=== PATIENT | male | born 1970 | race Caucasian/White ===

== ENCOUNTER 2019-06-29 14:12 | Emergency (ER) | payer OTHER, SELFPAY ==
[2019-06-29] VITALS (19 sets, daily range): BP systolic 133–167; BP diastolic 76–94; PULSE 59–77; RESP 12–23; TEMP 36.7–36.9; O2SAT 95–99
--- NOTE | 2019-06-29 14:19 | DI.CT.S_ITS ---
PROCEDURE: CT STROKE INDICATIONS: CODE STROKE TECHNIQUE: Noncontrast 4.5 mm thick angled axial sections acquired from the foramen magnum to the vertex, with coronal reformats. For radiation dose reduction, the following was used: automated exposure control, adjustment of mA and/or kV according to patient size. COMPARISON: None. FINDINGS: Image quality: Excellent. CSF spaces: Basal cisterns are patent. No extra-axial fluid collections. Ventricles are normal in size and shape. Brain: No midline shift. No intracranial masses or hemorrhage. Salvador-white matter interface is normal. Skull and face: Calvarium and visualized facial bones are intact, without suspicious lesions. Sinuses: Visualized sinuses and mastoids are clear. IMPRESSION: No mass or hemorrhage, no trauma found. This information was immediately conveyed personally to the emergency room physician caring for the patient at 2:30 p.m. This study fulfills neurological imaging criteria for inclusion or exclusion of acute stroke therapies based on available published neurological imaging guidelines. Dictated by: Reji Bhatti M.D. on 06/29/2019 at 14:38 Approved by: Reji Bhatti M.D. on 06/29/2019 at 14:38
--- NOTE | 2019-06-29 14:19 | DI.RAD.S_ITS ---
PROCEDURE: XR CHEST 1V INDICATIONS: Possible stroke TECHNIQUE: One view of the chest was acquired. COMPARISON: None. FINDINGS: Surgical changes and devices: None. Lungs and pleura: Lungs are clear. No pleural effusions or pneumothorax. Mediastinum: Mediastinal contours appear normal. Heart size is normal. Bones and chest wall: No suspicious bony lesions. Overlying soft tissues appear unremarkable. IMPRESSION: No aspiration or pneumonia seen. Dictated by: Reji Bhatti M.D. on 06/29/2019 at 14:46 Approved by: Reji Bhatti M.D. on 06/29/2019 at 14:46
--- NOTE | 2019-06-29 14:25 | ED_ITS ---
HPI - Neuro Symptoms/Deficit General Chief Complaint: Neuro Symptoms/Deficit Stated Complaint: left side body tingling, cough, right eye blurry Time Seen by Provider: 06/29/19 14:12 Source: patient and family Mode of arrival: Ambulatory Limitations: no limitations History of Present Illness HPI Narrative: 49-year-old male nonsmoker with noncontributory medical history presents with his in the chief complaint of a sudden onset of neurologic symptoms including right eye blurring as well as left arm tingling and heaviness as well as left leg tingling and heaviness that started 1 hour prior to arrival. He states that he had a bit of a coughing fit and then felt some pain in the right side of his neck followed by the above-stated symptoms. He denies any injury. He takes no blood thinners and has no history of hypertension, stroke, or irregular heart rate. His symptoms persist and have shown no signs of improvement. Per patient time of onset is about 1:25 p.m, , however, states he came to see her at her work about these symptoms at about 1pm. Additionally, patient was walking with a bit of a list to the left. Patient activated as Code Stroke and taken directly to CT. LAMS score 3. Current TPA candidate, not currently IR candidate. Onset (ago): minute(s) Location: left arm and left leg History of same: No Severity: moderate Quality: weak, numb and tingling Relieving factors: none Exacerbating factors: none Context: sudden onset On Anticoagulants: No Treatments Prior to Arrival: none Related Data Home Medications Medication Instructions Recorded Confirmed No Known Home Medications 06/29/19 06/29/19 Allergies Allergy/AdvReac Type Severity Reaction Status Date / Time No Known Drug Allergies Allergy Verified 06/29/19 14:50 Review of Systems Constitutional Constitutional: Denies chills, Denies fatigue, Denies fever(s), Denies frequent falls, Denies lethargy and Denies weakness Eyes Eyes: Denies change in vision, Denies eye discharge, Denies irritation and Reports loss of vision ENT Ears, Nose, Mouth, and Throat: Denies change in voice, Denies dizziness, Denies neck pain, Denies sore throat and Denies throat swelling Cardiovascular Cardiovascular: Denies chest pain, Denies irregular heart rhythm, Denies lightheadedness, Denies palpitations, Denies dyspnea, Denies dyspnea on exertion and Denies orthopnea Respiratory Respiratory: Denies cough, Denies dyspnea, Denies dyspnea on exertion and Denies wheezing Gastrointestinal Gastrointestinal: Denies abdominal pain, Denies change in bowel habits, Denies diarrhea, Denies nausea and Denies vomiting Genitourinary Genitourinary: Denies hematuria, Denies flank pain, Denies urinary incontinence and Denies urinary urgency Musculoskeletal Musculoskeletal: Reports abnormal gait, Denies back pain, Denies muscle weakness, Denies neck pain, Denies numbness and Denies tingling Integumentary/Breasts Skin/Breast: Denies pruritus, Denies erythema, Denies rash and Denies wounds Neurologic Neurologic: Reports abnormal gait, Denies behavioral changes, Denies confusion, Denies dizziness, Denies frequent falls, Reports lack of coordination, Reports focal weakness, Reports loss of vision, Denies numbness, Reports sensory deficit, Denies tingling, Reports paresthesias and Denies weakness Psychiatric Psychiatric: Denies anxiety, Denies behavioral changes, Denies confusion, Denies depression, Denies homicidal ideation and Denies suicidal ideation Endocrine Endocrine: Denies fatigue, Denies flushing and Denies palpitations Hematologic/Lymphatic Hematologic/Lymphatic: Denies easy bruising Allergic/Immunologic Allergic/Immunologic: Denies urticaria, Denies throat swelling and Denies wheezing Patient History Surgical History (Updated 06/29/19 @ 14:50 by Trisha Mendoza RN) No pertinent past surgical history (Acute) Social History Smoking Status: Never smoker Substance Use Type: does not use Exam Narrative Exam Narrative: GENERAL: [49] year old patient appears stated age. Well- nourished, well-developed patient, in mild distress. HEAD: Atraumatic. Normocephalic. EYES: Pupils equal round and reactive. Extraocular motions intact. No scleral icterus. No injection or drainage. ENT: Nose without bleeding, purulent drainage. Throat without erythema, tonsil lar hypertrophy or exudate. Airway patent. NECK: Trachea midline. Non tender CARDIOVASCULAR: Regular rate and rhythm without murmurs, gallops, or rubs. RESPIRATORY: Clear to auscultation. Breath sounds equal bilaterally. No wheezes, rales, or rhonchi. GASTROINTESTINAL: Abdomen soft, non-tender, nondistended. EXTREMITIES: No edema or joint tenderness. BACK: Nontender without deformity or crepitance. No flank tenderness. NEURO: AOx3. SKIN: No rash or erythema of visible areas Initial Vital Signs Initial Vital Signs: Vital Signs Pulse Rate 65 06/29/19 14:28 Respiratory Rate 15 06/29/19 14:28 Blood Pressure 133/87 06/29/19 14:28 Pulse Oximetry 99 06/29/19 14:28 Scores NIH Stroke Scale Level of Conciousness: Alert, keenly responsive Ask month/age: Answers both questions correctly. Open/close eyes, close hand: Performs both tasks correctly Best gaze horizontal: Normal Visual roberts: No visual loss Facial palsy: Minor paralysis, flattened nasolabial fold, asymmetry on smiling Left arm drift: Drifts down, not to bed Right arm drift: No drift for full 10 sec Left leg drift: No drift for full 10 sec Right leg drift: No drift for full 10 sec Limb ataxia: Absent Sensory on face/arms/legs: Mild to moderate sensory loss, can tell touch Best language: No aphasia, normal Dysarthria: Normal Extinction or inattention: No abnormality Total NIH Stroke scale score: 3 Course Course Course Narrative: tPA (Tissue Plasminogen Activator) Dosing for Stroke Calculator from [employer] on 06/29/2019 All calculations should be rechecked by clinician prior to use RESULT SUMMARY: 8.4 mg Bolus dose, given IV over 1 min 75.5 mg Infusion, given IV over 60 mins 16.1 mg Waste, to be discarded INPUTS: Weight ?> 93.2 kg 1510 REPEAT NIHSS NIH Stroke Scale/Score (NIHSS) from [email or web address] on 06/29/2019 All calculations should be rechecked by clinician prior to use RESULT SUMMARY: 3 points NIH Stroke Scale INPUTS: 1A: Level of consciousness ?> 0 = Alert; keenly responsive 1B: Ask month and age ?> 0 = Both questions right 1C: 'Blink eyes' & 'squeeze hands' ?> 0 = Performs both tasks 2: Horizontal extraocular movements ?> 0 = Normal 3: Visual roberts ?> 0 = No visual loss 4: Facial palsy ?> 1 = Minor paralysis (flat nasolabial fold, smile asymmetry) 5A: Left arm motor drift ?> 1 = Drift, but doesn't hit bed 5B: Right arm motor drift ?> 0 = No drift for 10 seconds 6A: Left leg motor drift ?> 0 = No drift for 5 seconds 6B: Right leg motor drift ?> 0 = No drift for 5 seconds 7: Limb Ataxia ?> 0 = No ataxia 8: Sensation ?> 1 = Mild-moderate loss: less sharp/more dull 9: Language/aphasia ?> 0 = Normal; no aphasia 10: Dysarthria ?> 0 = Normal 11: Extinction/inattention ?> 0 = No abnormality Orders Ordered: Discontinued Medications Alteplase, Recombinant (Activase) 75.5 mg 0.81 mg/kg (75.5 mg) IV NOW ONE Stop: 06/29/19 18:51 Alteplase, Recombinant (Activase) 8.4 mg 0.09 mg/kg (8.4 mg) IV NOW ONE Stop: 06/29/19 18:52 Reevaluation(s) Reevaluation #1: dry head shows no bleed. call to [facility] Stroke. On arrival to room patient reports worsening weakness of LUE and now can barely lift it off the cart. Otherwise well. Reevaluation #2: during CTA patient LUE completely weak, cannot lift off cart. By the time he returns to room he can lift it again, but still weak and tingling. Time: 15:03 Reevaluation #3: TPA bolus at 1540 drip at 1541 patient has near complete resolution of symptoms now. No CONNELLY or bleeding gums, e tc. Time: 15:53 Additional Reevaluation(s): 1743 - called to see patient, acting different, confused. Can no longer use L arm. Stat Head CT ordered Consultations Consultation #1: I've spoken with stroke team at [facility] and now Neuro Store Sales Manager regarding patient. Happy to accept, they will notify us of a bed. Time: 16:16 Consultation #2: both the stroke team and neurointensivist notified of patient clinical change, repeat head CT and decision to use airlift to get patient to [facility] more quickly. Vital Signs Vital signs: Vital Signs - 8 hr 06/29/19 14:28 06/29/19 14:33 06/29/19 14:55 Temperature Pulse Rate 65 62 Pulse Rate [Right] 61 Respiratory Rate 15 16 17 Blood Pressure [Right Arm] 133/87 139/85 149/83 H Pulse Oximetry 99 99 99 06/29/19 15:28 06/29/19 15:30 06/29/19 15:40 Temperature 98.0 F 98.0 F Pulse Rate 67 74 72 Pulse Rate [Right] Respiratory Rate 17 18 19 Blood Pressure [Right Arm] 153/93 H 147/93 H 144/94 H Pulse Oximetry 97 96 97 06/29/19 15:44 06/29/19 15:50 06/29/19 15:57 Temperature 98.5 F Pulse Rate 71 72 77 Pulse Rate [Right] Respiratory Rate 19 19 12 Blood Pressure [Right Arm] 146/92 H 146/89 H 148/91 H Pulse Oximetry 98 98 98 06/29/19 16:15 06/29/19 16:30 06/29/19 16:35 Temperature 98.5 F 98.5 F Pulse Rate 63 64 62 Pulse Rate [Right] Respiratory Rate 21 16 20 Blood Pressure [Right Arm] 141/90 H 141/80 H 146/87 H Pulse Oximetry 96 99 98 06/29/19 16:45 06/29/19 17:00 06/29/19 17:15 Temperature Pulse Rate 64 62 61 Pulse Rate [Right] Respiratory Rate 20 18 18 Blood Pressure [Right Arm] 140/83 167/92 H 135/83 Pulse Oximetry 98 97 98 MDM - Neuro Symptoms/Deficit Lab Data Result diagrams: 06/29/19 14:39 06/29/19 14:39 Labs: Lab Results 06/29/19 06/29/19 06/29/19 Range/Units 14:39 14:39 14:39 WBC 4.9 (4.5-11.0) X10^3/uL RBC 5.20 (4.5-5.9) X10^6/uL Hgb 15.3 (13.5-17.5) g/dL Hct 43.1 (41-53) % MCV 82.9 (80-100) fL MCH 29.5 (26-34) PG MCHC 35.6 (30-36) % RDW 12.5 (11.6-14.8) % Plt Count 210 (150-400) X10^3/uL Neut % (Auto) 60.0 (50-75) % Lymph % (Auto) 28.6 (25-40) % Randall % (Auto) 7.6 (3-14) % Eos % (Auto) 2.6 (2-4) % Baso % (Auto) 1.2 (0-2) % Neut # (Auto) 2900 (0795-7438) /uL Lymph # (Auto) 1400 (3269-1966) /uL Randall # (Auto) 400 (0-900) /uL Eos # (Auto) 100 (0-450) /uL Baso # (Auto) 100 (0-100) /uL PT 12.3 (10.1-12.7) SECONDS INR 1.1 (0.9-1.3) APTT 38 H (26.4-36.2) SECONDS Sodium 139 (137-145) mmol/L Potassium 4.0 (3.4-5.1) mmol/L Chloride 104 (98-107) mmol/L Carbon Dioxide 25 (22-32) mmol/L BUN 14 (9-20) mg/dL Creatinine 0.90 (0.66-1.25) mg/dL Estimated GFR > 60.0 (>60) mL/min BUN/Creatinine Ratio 15.6 (6-22) Glucose 102 H (70-100) mg/dL Calcium 9.1 (8.4-10.2) mg/dL Total Bilirubin 0.6 (0.2-1.3) mg/dL AST 34 (17-59) IU/L ALT 30 (<50) IU/L Alkaline Phosphatase 81 (38-126) U/L Total Creatine Kinase 71 (55-170) U/L CK-MB (CK-2) TNP CK-MB (CK-2) Rel Index TNP Troponin I < 0.012 (0.01-0.034) ng/mL Total Protein 7.3 (6.3-8.2) g/dL Albumin 4.4 (3.5-5.0) g/dL Globulin 2.9 (1.7-4.1) g/dL Albumin/Globulin Ratio 1.5 (1.0-2.8) U Opiates 300ng/mL cut (Negative) Ur Oxycodone Screen (Negative) Urine Methadone Screen (Negative) Ur Barbiturates Screen (Negative) U Tricyclic Antidepress (Negative) Ur Phencyclidine Scrn (Negative) Ur Amphetamines Screen (Negative) U Methamphetamines Scrn (Negative) Ur MDMA Scrn (Ecstasy) (Negative) U Benzodiazepines Scrn (Negative) Urine Cocaine Screen (Negative) U Marijuana (THC) Screen (Negative) 06/29/19 Range/Units 15:19 WBC (4.5-11.0) X10^3/uL RBC (4.5-5.9) X10^6/uL Hgb (13.5-17.5) g/dL Hct (41-53) % MCV (80-100) fL MCH (26-34) PG MCHC (30-36) % RDW (11.6-14.8) % Plt Count (150-400) X10^3/uL Neut % (Auto) (50-75) % Lymph % (Auto) (25-40) % Randall % (Auto) (3-14) % Eos % (Auto) (2-4) % Baso % (Auto) (0-2) % Neut # (Auto) (0180-5683) /uL Lymph # (Auto) (4327-6772) /uL Randall # (Auto) (0-900) /uL Eos # (Auto) (0-450) /uL Baso # (Auto) (0-100) /uL PT (10.1-12.7) SECONDS INR (0.9-1.3) APTT (26.4-36.2) SECONDS Sodium (137-145) mmol/L Potassium (3.4-5.1) mmol/L Chloride (98-107) mmol/L Carbon Dioxide (22-32) mmol/L BUN (9-20) mg/dL Creatinine (0.66-1.25) mg/dL Estimated GFR (>60) mL/min BUN/Creatinine Ratio (6-22) Glucose (70-100) mg/dL Calcium (8.4-10.2) mg/dL Total Bilirubin (0.2-1.3) mg/dL AST (17-59) IU/L ALT (<50) IU/L Alkaline Phosphatase (38-126) U/L Total Creatine Kinase (55-170) U/L CK-MB (CK-2) CK-MB (CK-2) Rel Index Troponin I (0.01-0.034) ng/mL Total Protein (6.3-8.2) g/dL Albumin (3.5-5.0) g/dL Globulin (1.7-4.1) g/dL Albumin/Globulin Ratio (1.0-2.8) U Opiates 300ng/mL cut Negative (Negative) Ur Oxycodone Screen Negative (Negative) Urine Methadone Screen Negative (Negative) Ur Barbiturates Screen Negative (Negative) U Tricyclic Antidepress Negative (Negative) Ur Phencyclidine Scrn Negative (Negative) Ur Amphetamines Screen Negative (Negative) U Methamphetamines Scrn Negative (Negative) Ur MDMA Scrn (Ecstasy) Negative (Negative) U Benzodiazepines Scrn Negative (Negative) Urine Cocaine Screen Negative (Negative) U Marijuana (THC) Screen Negative (Negative) Point of Care Testing Glucose POC 90 Urine Dip Bedside Urine Glucose Negative Bedside Urine Bilirubin - Negative Bedside Urine Ketone - Negative Urine Specific [place] 1.010 Bedside Urine Occult Blood - Negative Bedside Urine pH 7.0 Bedside Urine Protein - Negative Bedside Urine Urobilinogen - Negative Bedside Urine Nitrite - Negative Bedside Urine Leukocytes - Negative Esterase ECG Data Attestation: I personally reviewed and interpreted this ECG as follows: Prior ECG tracings: not available for review Interpretation: EKG is normal sinus rhythm rate [ 68] and free of any signs of ischemia or ectopy. No ST segmental elevation or depression. No T wave inversions MDM Narrative Medical decision making narrative: 49-year-old male previously healthy with sudden onset side neurologic symptoms associated with vigorous cough and right- sided neck pain. After consultation with Stroke Team we elect to hold on tPA until receipt of CT angiogram of head neck given the consideration of dissection. TPA administered, near complete resolution of symptoms. Patient to [facility] for ongoing care. Critical Care Time Critical Care Time Critical Care Time: Yes Total Critical Care Time: 35 Attestation: The high probability of a clinically significant, sudden or life threatening deterioration of the [NV] system(s) required my full and direct attention, intervention and personal management. The aggregate critical care time was [35] minutes. This time is in addition to time spent performing reported procedures but includes the following: [x] Data Review and interpretation [x] Patient assessment and monitoring of vital signs [x] Documentation [x] Medication orders and management Discharge Plan Departure Patient Disposition: [facility] Clinical Impression: Received intravenous tissue plasminogen activator (tPA) in emergency department Cerebrovascular accident Qualifiers: CVA mechanism: unspecified Qualified Code(s): I63.9 - Cerebral infarction, unspecified Discharge Date/Time: 06/29/19 19:03 Prescriptions: No Action No Known Home Medications RF: 0
--- NOTE | 2019-06-29 14:42 | DI.CT.S_ITS ---
PROCEDURE: CT ANGIO HEAD AND NECK INDICATIONS: worsening stroke symptoms TECHNIQUE: Pre-contrast 4.5 mm thick sections acquired from the foramen magnum to the vertex. After the administration of intravenous contrast, 1 mm thick sections acquired from the aortic arch through the [place] of [place]. Post-contrast 4.5 mm thick sections then re-acquired from the foramen magnum to the vertex. 3-dimensional vuicxdz-modigwwff-glgnexveqi (MIP) and/or volume rendering reformats were acquired of the central intracranial vasculature and neck separately. COMPARISON: None. FINDINGS: Image quality: Excellent. BRAIN: CSF spaces: Ventricles are normal in size and shape. Basal cisterns are patent. No extra-axial fluid collections. Brain: No midline shift. No intracranial bleeds or masses. Salvador-white matter interface appears intact. Skull and face: Calvarium and facial bones appear intact, without suspicious lesions. Orbits appear normal. Sinuses: Sinuses and mastoids are clear. HEAD CT ANGIOGRAPHY: Anterior circulation: Intracranial internal carotid arteries are patent. No large vessel occlusion seen. The flow within the paired anterior cerebral arteries is normal and symmetric. The flow within the middle cerebral arteries is normal and symmetric. The anterior communicating artery is seen. No aneurysms are seen. 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 Flow within the posterior cerebral arteries is normal and symmetric. No aneurysms are seen. The posterior communicating arteries are hypoplastic or absent. NECK CT ANGIOGRAPHY: Carotid system: The great vessels demonstrate a conventional anatomy as they arise from the aortic arch. The origins of the common carotid arteries appear patent. The common carotid arteries demonstrate normal caliber and courses. The most proximal right ICA is patent. However, just distal to the origins of the right ICA is occluded or to the level of the distal intracranial ICA. The left ICA is patent. The external carotid arteries are patent. Posterior circulation: The origins of the vertebral arteries both appear widely patent. The left vertebral artery is hypoplastic compared to the right. The more superior extracranial portions of both vertebral arteries also demonstrate normal courses. Normal appearing basilar artery. Soft tissues: Visualized neck soft tissues demonstrate no suspicious abnormalities. Bones: No suspicious bony lesions. Visualized cervical spine appears normally aligned. IMPRESSION: 1. 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 2. No intracranial large vessel thrombus identified. 3. 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 4. No significant stenosis or aneurysm identified. Any quantitative measurements of stenosis were performed using NASCET criteria. Comment: Findings were discussed with Memo Guerra at 3:22 PM. Dictated by: Mata Muñoz M.D. on 06/29/2019 at 15:16 Approved by: Mata Muñoz M.D. on 06/29/2019 at 15:32
[2019-06-29 14:52] LABS: Add Manual Diff / Slide Review NO; Basophils Absolute Auto 100 /uL (0-100); Basophils Percent Auto 1.2 % (0-2); Eosinophils Absolute Auto 100 /uL (0-450); Eosinophils Percent Auto 2.6 % (2-4); Hematocrit 43.1 % (41-53); Hemoglobin 15.3 g/dL (13.5-17.5); Lymphocytes Absolute Auto 1400 /uL (1100-4500); Lymphocytes Percent Auto 28.6 % (25-40); Mean Corpuscular HGB Conc 35.6 % (30-36); Mean Corpuscular Hemoglobin 29.5 PG (26-34); Mean Corpuscular Volume 82.9 fL (80-100); Monocytes Absolute Auto 400 /uL (0-900); Monocytes Percent Auto 7.6 % (3-14); Neutrophils Absolute Auto 2900 /uL (1500-7000); Platelet Count 210 X10^3/uL (150-400); Red Cell Distribution Width 12.5 % (11.6-14.8); White Blood Cell Count 4.9 X10^3/uL (4.5-11.0)
[2019-06-29 14:57] LABS: INR 1.1 (0.9-1.3); Prothrombin Time 12.3 SECONDS (10.1-12.7)
[2019-06-29 15:00] LABS: PTT Partial Thromboplastin Tim 38 SECONDS (26.4-36.2)
[2019-06-29 15:06] LABS: Alanine Aminotransferase 30 IU/L (<50); Albumin 4.4 g/dL (3.5-5.0); Albumin Globulin Ratio 1.5 (1.0-2.8); Alkaline Phosphatase 81 U/L (38-126); Aspartate Aminotransferase 34 IU/L (17-59); BUN Creatinine Ratio 15.6 (6-22); Bilirubin Total 0.6 mg/dL (0.2-1.3); Blood Urea Nitrogen 14 mg/dL (9-20); Calcium 9.1 mg/dL (8.4-10.2); Carbon Dioxide 25 mmol/L (22-32); Chloride 104 mmol/L (98-107); Creatine Kinase 71 U/L (55-170); Estimated Glomerular Filt Rate > 60.0 mL/min (>60); Globulin 2.9 g/dL (1.7-4.1); Glucose 102 mg/dL (70-100); HEMOLYSIS 39 (0-50); Sodium 139 mmol/L (137-145); Total Protein 7.3 g/dL (6.3-8.2)
[2019-06-29 15:17] LABS: Troponin I < 0.012 ng/mL (0.01-0.034)
[2019-06-29 15:38] LABS: UR Morphine/Opiate cutoff 300 Negative (Negative); Ur Creatinine Normal (Normal); Ur Specific Gravity Normal (Normal); Urine Amphetamines Negative (Negative); Urine Barbiturates Negative (Negative); Urine Benzodiazepines Negative (Negative); Urine Cocaine Negative (Negative); Urine MDMA Negative (Negative); Urine Methadone Negative (Negative); Urine Methamphetamines Negative (Negative); Urine Oxycodone Negative (Negative); Urine Phencyclidine Negative (Negative); Urine Tetrahydrocannabinol Negative (Negative); Urine Tricyclic Antidepressant Negative (Negative); Urine pH Normal (Normal)
--- NOTE | 2019-06-29 16:01 | PC.NURSE ---
pt arrived to ER with complaints of a fuzzy. blurry right eye, tingling in left leg and arm, left facial droop.
--- NOTE | 2019-06-29 16:51 | PC.NURSE ---
tpa bolus started at 1540- mixed by pharmacy. tpa gtt started at 1541 at 75.5 ml/hr (total volume 75.5 cc)and infused completely at 1641 hung tpa flush at 1641, normal saline at 75.5 ml hour, total amount is 50 cc. pt has a minor left sided facial droop
--- NOTE | 2019-06-29 17:43 | DI.CT.S_ITS ---
PROCEDURE: CT HEAD/BRAIN WO CON INDICATIONS: mental status change after TPA TECHNIQUE: Noncontrast 4.5 mm thick angled axial sections acquired from the foramen magnum to the vertex, with coronal and sagittal reformats. For radiation dose reduction, the following was used: automated exposure control, adjustment of mA and/or kV according to patient size. COMPARISON: [facility], CT, CT ANGIO HEAD AND NECK, 06/29/2019, 14:42. [facility], CT, CT STROKE, 06/29/2019, 14:18. FINDINGS: Image quality: Diagnostic. Patient motion artifact. CSF spaces: Basal cisterns are patent. No extra-axial fluid collections. Ventricles are normal in size and shape. Brain: No midline shift. No intracranial masses or hemorrhage. Salvador-white matter interface is normal. Skull and face: Calvarium and visualized facial bones are intact, without suspicious lesions. Sinuses: Visualized sinuses and mastoids are clear. IMPRESSION: Patient motion artifact. No acute stroke, hemorrhage, or mass is noted after TPA administration. Dictated by: Olvin Nation M.D. on 06/29/2019 at 18:18 Approved by: Olvin Nation M.D. on 06/29/2019 at 18:21
--- NOTE | 2019-06-29 18:21 | PC.NURSE ---
Pt has been on 1:1 care for code stroke, at 1743, pt's condition changed. he became confused to hospital name. rolling all over bed. unable to push himself up in bed or follow commands. pt was hiccuping at this time. left arm became flaccid. left facial droop got worse. pt had an increase in sensation to his left arm, tingling. Dr. Guerra called in the room immediately. we went to CT Scan. at bedside. pt is now starting to move his left arm, facial droop. nihss scale 5
--- NOTE | 2019-06-29 19:06 | PC.NURSE ---
Valente the pharmacist mixed up TPA and bolus. He will enter in med record.
== END 2019-06-29 19:03 | disposition short-term general hospital (02) ==
PROVIDERS: Emergency Provider Emergency Medicine
DX: I63.9 Cerebral infarction, unspecified (principal); Z92.82 Status post administration of tPA (rtPA) in a different facility within the last 24 hours prior to admission to current facility; R20.2 Paresthesia of skin; H53.8 Other visual disturbances
CPT/HCPCS: 36415; 70450; 70496; 70498; 71045; 80053; 80305; 81003; 82550; 82962; 84484; 85025; 85610; 85730; 93005; 99285; 99291; 99292

== ENCOUNTER 2019-11-10 14:23 | Emergency (ER) | payer OTHER, SELFPAY ==
[2019-11-10 14:36] VITALS: BP 163/85; PULSE 85; RESP 17; TEMP 36.9; O2SAT 98; BMI 30.7
--- NOTE | 2019-11-10 15:02 | DI.CT.S_ITS ---
PROCEDURE: CT HEAD/BRAIN WO CON INDICATIONS: left leg numb prior CVA TECHNIQUE: Noncontrast 4.5 mm thick angled axial sections acquired from the foramen magnum to the vertex, with coronal and sagittal reformats. For radiation dose reduction, the following was used: automated exposure control, adjustment of mA and/or kV according to patient size. COMPARISON: [facility], CT, CT STROKE, 06/29/2019, 14:18. [facility], CT, CT HEAD/BRAIN WO CON, 06/29/2019, 17:42. FINDINGS: Image quality: Excellent. CSF spaces: Basal cisterns are patent. No extra-axial fluid collections. Ventricles are normal in size and shape. Brain: No midline shift. No intracranial masses or hemorrhage. Salvador-white matter interface is normal. Skull and face: Calvarium and visualized facial bones are intact, without suspicious lesions. Sinuses: Visualized sinuses and mastoids are clear. IMPRESSION: 1. No acute intracranial abnormalities. Dictated by: Cliff Siddiqi M.D. on 11/10/2019 at 15:16 Approved by: Cliff Siddiqi M.D. on 11/10/2019 at 15:19
--- NOTE | 2019-11-10 15:07 | ED.EXTPRO ---
HPI - Extremity Problem General Chief complaint: Extremity Problem,Nontraumatic Stated complaint: numbness in leg, left Time Seen by Provider: 11/10/19 14:38 Source: patient Mode of arrival: Ambulatory Limitations: no limitations History of Present Illness HPI Narrative: Patient is a 49-year-old male with history of recent stroke in June 2019 with tPA presenting with left thigh numbness. He actually had left body numbness of with his stroke. He says today this does not quite feel like the numbness he had with his stroke he was sitting on a chair when he got up he felt like his left leg was numb a resolved as he was moving around but not completely he says it still feels weird mostly on his left lateral anterior thigh. He has no weakness he is ambulatory without any problem. He denies any other symptoms. He has had previously with his stroke he had some visual changes as well which he does not have. He has no slurring of speech or facial drooping. His symptoms started around 8:00 a.m. and he arrived in the emergency department at 2:30 p.m. Onset (ago): hour(s) Related Data Home Medications Medication Instructions Recorded Confirmed aspirin [Adult Low Dose Aspirin] 81 mg PO DAILY 11/10/19 11/10/19 atorvastatin 80 mg PO DAILY 11/10/19 11/10/19 Allergies Allergy/AdvReac Type Severity Reaction Status Date / Time No Known Drug Allergies Allergy Verified 11/10/19 14:42 Review of Systems Review of Systems Narrative: GENERAL: Denies chills, fatigue, malaise, fever, sweats, travel HEENT: Denies sinus pain, ear pain, sore throat, difficulty swallowing, neck pain RESPIRATORY: Denies dyspnea, cough, wheezing, hemoptysis, sputum. CARDIOVASCULAR: Denies chest pain, palpitations, orthopnea, edema GASTROINTESTINAL: Denies nausea, vomiting, abdominal pain, diarrhea, constipation, melena. : Denies dysuria, frequency, incontinence, hematuria, urinary retention, flank pain. MUSCULOSKELETAL: Denies weakness, joint pain, or bony pain SKIN: No rash, no erythema, no pruritus NEUROLOGIC: See HPI PSYCHIATRIC: No concerning psychosocial issues. 12 point review of systems is negative except for those stated above and HPI Patient History Medical History CVA (cerebral vascular accident) (Acute) Surgical History No pertinent past surgical history (Acute) Social History Smoking Status: Never smoker Smoking Status: Never smoker alcohol intake frequency: a few times a week Substance Use Type: does not use Exam Initial Vital Signs Initial Vital Signs: Vital Signs Temperature 98.4 F 11/10/19 14:36 Pulse Rate 85 11/10/19 14:36 Respiratory Rate 17 11/10/19 14:36 Blood Pressure 163/85 H 11/10/19 14:36 Pulse Oximetry 98 11/10/19 14:36 GENERAL: Well-appearing, well-nourished and in no acute distress. HEENT: Head atraumatic,EOMI, pupils reactive, face symmetric, moist mucous membranes CARDIOVASCULAR: Regular rate and rhythm without murmurs, rubs or gallops. RESPIRATORY: Breath sounds equal bilaterally, no wheezes rales or rhonchi. ABDOMEN: Soft, nontender. Normoactive bowel sounds all 4 quadrants. No guarding or rebound. EXTREMITIES: Normal range of motion, no clubbing or edema. Neurovascularly intact NEUROLOGICAL: Alert and oriented x4.Normal gait and speech. Cranial nerves II through XII grossly intact. Good [id number], good guus-va-ppen, strength equal bilaterally, no dysarthria or aphasia, sensation in tact to soft touch bilaterally, no visual changes, no facial droop. Sensation left anterior thigh he says does feel different BACK: No vertebral tenderness or step-offs no lumbar pain SKIN: Warm, dry, no laceration, no petechiae, no rashes or lesions. Scores NIH Stroke Scale Level of Conciousness: Alert, keenly responsive Ask month/age: Answers both questions correctly. Open/close eyes, close hand: Performs both tasks correctly Best gaze horizontal: Normal Visual roberts: No visual loss Facial palsy: Normal symetrical movement Left arm drift: No drift for full 10 sec Right arm drift: No drift for full 10 sec Left leg drift: No drift for full 10 sec Right leg drift: No drift for full 10 sec Limb ataxia: Absent Sensory on face/arms/legs: Normal, no sensory loss Best language: No aphasia, normal Dysarthria: Normal Extinction or inattention: No abnormality Total NIH Stroke scale score: 0 Course Orders Ordered: ED Orders 11/10/19 15:00 Complete Blood Count AUTO DIFF Stat Comprehensive Metabolic Panel Stat Partial Thromboplastin Time Stat Prothrombin Time INR Stat Troponin & CK Cardiac Panel Stat 11/10/19 15:02 CT head/brain wo con Stat EKG-12 Lead Stat Vital Signs Vital signs: Vital Signs - 8 hr 11/10/19 14:36 11/10/19 16:53 11/10/19 16:55 Temperature 98.4 F Pulse Rate 85 77 Respiratory Rate 17 21 Blood Pressure 163/85 H 160/84 H 160/84 H Pulse Oximetry 98 97 11/10/19 17:05 Temperature Pulse Rate 79 Respiratory Rate 20 Blood Pressure 132/80 Pulse Oximetry 97 MDM - Extremity (Nontraumatic) Lab Data Result diagrams: 11/10/19 15:00 11/10/19 15:00 Labs: Lab Results 11/10/19 11/10/19 11/10/19 Range/Units 15:00 15:00 15:00 WBC 6.1 (4.5-11.0) X10^3/uL RBC 5.21 (4.5-5.9) X10^6/uL Hgb 15.5 (13.5-17.5) g/dL Hct 43.9 (41-53) % MCV 84.3 (80-100) fL MCH 29.7 (26-34) PG MCHC 35.2 (30-36) % RDW 12.2 (11.6-14.8) % Plt Count 205 (150-400) X10^3/uL Neut % (Auto) 77.8 H (50-75) % Lymph % (Auto) 15.2 L (25-40) % [place] % (Auto) 5.7 (3-14) % Eos % (Auto) 0.5 L (2-4) % Baso % (Auto) 0.8 (0-2) % Neut # (Auto) 4700 (8050-4076) /uL Lymph # (Auto) 900 L (8188-0774) /uL [place] # (Auto) 300 (0-900) /uL Eos # (Auto) 0 (0-450) /uL Baso # (Auto) 0 (0-100) /uL PT 12.1 (10.1-12.7) SECONDS INR 1.0 (0.9-1.3) APTT 37 H (26.4-36.2) SECONDS Sodium 139 (137-145) mmol/L Potassium 3.9 (3.4-5.1) mmol/L Chloride 104 (98-107) mmol/L Carbon Dioxide 26 (22-32) mmol/L BUN 11 (9-20) mg/dL Creatinine 0.89 (0.66-1.25) mg/dL Estimated GFR > 60.0 (>60) mL/min BUN/Creatinine Ratio 12.4 (6-22) Glucose 104 H (70-100) mg/dL Calcium 9.2 (8.4-10.2) mg/dL Total Bilirubin 0.7 (0.2-1.3) mg/dL AST 72 H (17-59) IU/L ALT 165 H (<50) IU/L Alkaline Phosphatase 162 H (38-126) U/L Total Creatine Kinase 68 (55-170) U/L CK-MB (CK-2) TNP CK-MB (CK-2) Rel Index TNP Troponin I < 0.012 (0.01-0.034) ng/mL Total Protein 7.2 (6.3-8.2) g/dL Albumin 4.4 (3.5-5.0) g/dL Globulin 2.8 (1.7-4.1) g/dL Albumin/Globulin Ratio 1.6 (1.0-2.8) Urine Dip Bedside Urine Glucose Negative Bedside Urine Bilirubin - Negative Bedside Urine Ketone - Negative Urine Specific [place] 1.015 Bedside Urine Occult Blood - Negative Bedside Urine pH 7.0 Bedside Urine Protein - Negative Bedside Urine Urobilinogen - Negative Bedside Urine Nitrite - Negative Bedside Urine Leukocytes - Negative Esterase Imaging Data CT scan - head: Radiologist's Impression: PROCEDURE: CT HEAD/BRAIN WO CON INDICATIONS: left leg numb prior CVA TECHNIQUE: Noncontrast 4.5 mm thick angled axial sections acquired from the foramen magnum to the vertex, with coronal and sagittal reformats. For radiation dose reduction, the following was used: automated exposure control, adjustment of mA and/or kV according to patient size. COMPARISON: [facility], CT, CT STROKE, 06/29/2019, 14:18. [facility], CT, CT HEAD/BRAIN WO CON, 06/29/2019, 17:42. FINDINGS: Image quality: Excellent. CSF spaces: Basal cisterns are patent. No extra-axial fluid collections. Ventricles are normal in size and shape. Brain: No midline shift. No intracranial masses or hemorrhage. [place]-white matter interface is normal. Skull and face: Calvarium and visualized facial bones are intact, without suspicious lesions. Sinuses: Visualized sinuses and mastoids are clear. IMPRESSION: 1. No acute intracranial abnormalities. Dictated by: Cliff Siddiqi M.D. on 11/10/2019 at 15:16 MDM Narrative Medical decision making narrative: Patient is having some back pain he has only numbness in 1 area of his thigh. 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 He has no weakness. There is only a small area of numbness on his thigh with mild back pain. no other focal deficits an NIH stroke scale of 0. Long discussion with patient and family decision to go home, in to return to the ED. we also discussed monitoring his blood pressure at home daily. Discharge Plan Departure Patient Disposition: Home Clinical Impression: Acute back pain with sciatica Qualifiers: Laterality: left Qualified Code(s): M54.42 - Lumbago with sciatica, left side Discharge Date/Time: 11/10/19 17:07 Instructions: DI for Back Pain With Sciatica Activity Restrictions/Additional Instructions: *You have been diagnosed with back pain with sciatica *What to do: Is it is possible this is back pain with sciatica. At this time it is unlikely to be stroke or stroke-like related. Please monitor your blood pressure daily once a day same time every day *Continue to take medications as directed *Follow up with your primary care provider in 2-3 days *Return to ER if you should have increasing weakness increasing numbness or any new, worsening or concerning symptoms Prescriptions: No Action atorvastatin 80 mg tablet 80 mg PO DAILY RF: 0 aspirin [Adult Low Dose Aspirin] 81 mg Tablet,Delayed Release (Dr/Ec) 81 mg PO DAILY RF: 0 Referrals: [facility] [Provider Group]
[2019-11-10 15:13] LABS: Add Manual Diff / Slide Review NO; Basophils Absolute Auto 0 /uL (0-100); Basophils Percent Auto 0.8 % (0-2); Eosinophils Absolute Auto 0 /uL (0-450); Eosinophils Percent Auto 0.5 % (2-4); Hematocrit 43.9 % (41-53); Hemoglobin 15.5 g/dL (13.5-17.5); Lymphocytes Absolute Auto 900 /uL (1100-4500); Lymphocytes Percent Auto 15.2 % (25-40); Mean Corpuscular HGB Conc 35.2 % (30-36); Mean Corpuscular Hemoglobin 29.7 PG (26-34); Mean Corpuscular Volume 84.3 fL (80-100); Monocytes Absolute Auto 300 /uL (0-900); Monocytes Percent Auto 5.7 % (3-14); Neutrophils Absolute Auto 4700 /uL (1500-7000); Neutrophils Percent Auto 77.8 % (50-75); Platelet Count 205 X10^3/uL (150-400); Red Blood Cell Count 5.21 X10^6/uL (4.5-5.9); Red Cell Distribution Width 12.2 % (11.6-14.8); White Blood Cell Count 6.1 X10^3/uL (4.5-11.0)
[2019-11-10 15:19] LABS: HEMOLYSIS 29 (0-50)
[2019-11-10 15:20] LABS: Prothrombin Time 12.1 SECONDS (10.1-12.7)
[2019-11-10 15:23] LABS: PTT Partial Thromboplastin Tim 37 SECONDS (26.4-36.2)
[2019-11-10 15:26] LABS: Alanine Aminotransferase 165 IU/L (<50); Albumin 4.4 g/dL (3.5-5.0); Albumin Globulin Ratio 1.6 (1.0-2.8); Alkaline Phosphatase 162 U/L (38-126); Aspartate Aminotransferase 72 IU/L (17-59); BUN Creatinine Ratio 12.4 (6-22); Bilirubin Total 0.7 mg/dL (0.2-1.3); Blood Urea Nitrogen 11 mg/dL (9-20); Calcium 9.2 mg/dL (8.4-10.2); Carbon Dioxide 26 mmol/L (22-32); Chloride 104 mmol/L (98-107); Creatine Kinase 68 U/L (55-170); Estimated Glomerular Filt Rate > 60.0 mL/min (>60); Globulin 2.8 g/dL (1.7-4.1); Glucose 104 mg/dL (70-100); Potassium 3.9 mmol/L (3.4-5.1); Sodium 139 mmol/L (137-145); Total Protein 7.2 g/dL (6.3-8.2)
[2019-11-10 15:36] LABS: Troponin I < 0.012 ng/mL (0.01-0.034)
[2019-11-10 16:53] VITALS: BP 160/84; PULSE 77; PULSE 79; RESP 18; RESP 21; O2SAT 97
[2019-11-10 16:55] VITALS: BP 160/84
[2019-11-10 17:05] VITALS: BP 132/80; PULSE 79; RESP 20; O2SAT 97
== END 2019-11-10 17:07 | disposition home or self-care (01) ==
PROVIDERS: Emergency Provider Emergency Medicine
DX: M54.42 Lumbago with sciatica, left side (principal)
CPT/HCPCS: 36415; 70450; 80053; 81003; 82550; 84484; 85025; 85610; 85730; 99284

== ENCOUNTER → 2021-01-07 13:17 | Outpatient (CLI) | payer OTHER, SELFPAY ==
[2021-01-07 16:02] LABS: COVID19 -Nasal RAPID Negative (Negative)
== END ==
PROVIDERS: Visit Provider Physician Assistant
DX: Z20.822 Contact with and (suspected) exposure to COVID-19 (principal); Z01.812 Encounter for preprocedural laboratory examination
CPT/HCPCS: 87635

== ENCOUNTER 2021-01-09 12:08 | Day surgery (SDC) | payer OTHER, SELFPAY ==
--- NOTE | 2021-01-09 13:11 | PM.HP.1 ---
History of Present Illness History of Present Illness Date Patient Seen: 01/09/21 Chief complaint: SDC Narrative: First screening colonoscopy Patient History Medical History (Updated 11/25/19 @ 00:00 by ) CVA (cerebral vascular accident) Surgical History No pertinent past surgical history Family & Social History Tobacco & Substance use: Smoking Status Never smoker alcohol intake frequency a few times a week Substance Use Type does not use Meds Home Medications and Allergies Home Medications Medication Instructions Recorded Confirmed Type aspirin 81 mg tablet,delayed 81 mg PO DAILY 11/10/19 11/10/19 History release (Adult Low Dose Aspirin) atorvastatin 80 mg tablet 80 mg PO DAILY 11/10/19 11/10/19 History Allergies Allergy/AdvReac Type Severity Reaction Status Date / Time No Known Drug Allergies Allergy Verified 01/09/21 13:12 Exam Narrative Exam Narrative: Oropharynx free of lesions Chest clear to auscultation percussion Cardiac exam reveals no S3 or murmur Assessment & Plan Assessment & Plan narrative: Need for 1st screening colonoscopy. Risks, benefits, alternatives have been explained. Time Spent With Patient Critical Care time: I spent a total of [] minutes of critical care time on this patient's care today; this time is exclusive of procedural time.
--- NOTE | 2021-01-09 13:12 | PM.OP.ENDO ---
Operative Date/Time/Diagnoses Date of procedure: 01/09/21 Pre-op diagnosis: See indication and findings Procedure & Clinicians Study performed: Colonoscopy Indications: Screening Surgeon: Gia Zamudio Procedure Notes Procedure in detail: After informed consent was obtained the patient was placed in left lateral decubitus position. The video colonoscope was inserted in the anus and slowly advanced cecum. On slow withdrawal mucosa was carefully examined. Preparation was good. The scope was removed. The patient tolerated procedure well. Blood loss none Complications none Sedation mac Findings 1. Normal colonoscopy to cecum Right will need follow-up colonoscopy in 10 years
[2021-01-09 13:13] VITALS: BP 138/85; PULSE 103; RESP 16; TEMP 36.6; O2SAT 98; BMI 33.3
[2021-01-09] MEDS: SODIUM CHLORIDE 0.9% 1,000 ML 125 ML IV (13:23)
[2021-01-09 14:08] VITALS: BP 117/78; PULSE 83; RESP 11; TEMP 37.3; O2SAT 96
[2021-01-09 14:13] VITALS: BP 118/84; PULSE 82; RESP 16; O2SAT 97
--- NOTE | 2021-01-09 14:15 | SUR.PHASEI ---
+ flatus, tolerating fluids
[2021-01-09 14:18] VITALS: BP 118/83; PULSE 76; RESP 11; TEMP 36.7; O2SAT 96
--- NOTE | 2021-01-09 14:33 | SUR.PHASEII ---
Pt ready to go, ride called, voice mail left with Corine to call when available.
--- NOTE | 2021-01-09 14:35 | SUR.PHASEII ---
Corine called back, pt dressed left when ready left in stable condition.
== END 2021-01-09 14:35 | disposition home or self-care (01) ==
PROVIDERS: PCP Internal Medicine; Referring Provider Internal Medicine Gastroenterology; Visit Provider Internal Medicine Gastroenterology
PROC: 0DJD8ZZ Inspection of Lower Intestinal Tract, Via Natural or Artificial Opening Endoscopic (ICD-10-PCS; CPT 45378; principal; 2021-01-09 13:30)
DX: Z12.11 Encounter for screening for malignant neoplasm of colon (principal); Z86.73 Personal history of transient ischemic attack (TIA), and cerebral infarction without residual deficits; Z79.82 Long term (current) use of aspirin
CPT/HCPCS: 45378